=== PATIENT | male | born 1975 | race Caucasian/White ===

== ENCOUNTER 2017-06-13 18:59 | Emergency (ER) | payer SELFPAY ==
[~2017-06-13] VITALS: Ht 175.3 cm; Wt 97.1 kg
[~2017-06-13 18:59] MED LIST: AMOX250; AMOX875 PO; ASPI325; DOXY100 PO; HYDACE5 PO; HYDR1TAB94 PO; IBUP600 PO; IBUP800 PO; LISI20 PO; NAPR500 PO; NAPR550 PO; ONDA4ODT MM; OXYACE5T PO; OXYC1TAB11 PO; PENVK500 PO; Percocet 10-321 EACH PO; Percocet 5-3251 EACH PO; RXHYDMOR2 PO; Rocephin 1g1 G/50 ML IM; SULTRIDS; SULTRIDS PO; TRAM50; TRAM50 PO; Ultram50 MG PO
[2017-06-13] MEDS ORDERED: CEPH500 PO (20:11)
[2017-06-13] MEDS ORDERED: Percocet 5-3251 EACH PO (20:11)
== END 2017-06-13 20:20 | disposition home or self-care (01) ==
LOC: ER 18:59
DX: S71.112A Laceration without foreign body, left thigh, initial encounter (principal); F17.210 Nicotine dependence, cigarettes, uncomplicated; W29.3XXA Contact with powered garden and outdoor hand tools and machinery, initial encounter
CPT/HCPCS: 12004; 36415; 99283

== ENCOUNTER 2018-05-09 17:15 | Emergency (ER) | payer OTHER ==
[~2018-05-09] VITALS: Ht 177.8 cm; Wt 90.3 kg
[~2018-05-09 17:15] MED LIST changes: +ACET500 PO; +ALUM-MAG HYDRO360 ML PO; +ASPI325 PO; +Amoxicillin875 MG PO; +CEPH500 PO; +GABA300 PO; +PERICOLACE PO; +ROXICODONE5 MG PO
[2018-05-09] MEDS ORDERED: Norco 5-325 Ta1 EACH PO (19:01)
== END 2018-05-09 19:12 | disposition home or self-care (01) ==
LOC: ER 17:15
DX: Z76.0 Encounter for issue of repeat prescription (principal); F17.210 Nicotine dependence, cigarettes, uncomplicated; Z79.82 Long term (current) use of aspirin

== ENCOUNTER 2018-10-22 20:20 | Emergency (ER) | payer OTHER ==
[~2018-10-22] VITALS: Ht 172.7 cm; Wt 95.2 kg
[~2018-10-22 20:20] MED LIST changes: +Norco 5-325 Ta1 EACH PO
[2018-10-22 21:05] LABS: BASOPHILS ABSOLUTE AUTO 0.02 K/mm3 (0.00-0.23); BASOPHILS PERCENT AUTO 0 % (0-2); EOSINOPHILS ABSOLUTE AUTO 0.11 K/mm3 (0.00-0.68); EOSINOPHILS PERCENT AUTO 1 % (0-6); Hematocrit 48.8 % (37.0-53.0); Hemoglobin 16.6 g/dL (13.5-17.5); IMMATURE GRAN ABSOLUTE AUTO 0.04 K/mm3 (0.00-0.10); IMMATURE GRAN PERCENT AUTO 0 % (0-1); LYMPHOCYTES ABSOLUTE AUTO 1.81 K/mm3 (0.84-5.20); LYMPHOCYTES PERCENT AUTO 17 % (21-46); MONOCYTES ABSOLUTE AUTO 0.57 K/mm3 (0.16-1.47); MONOCYTES PERCENT AUTO 6 % (4-13); Mean Corpuscular HGB 32.5 pg (26.0-34.0); Mean Corpuscular Volume 96 fL (80-100); Mean Platelet Volume 9.5 fL (9.1-12.4); NEUTROPHILS PERCENT AUTO 76 % (41-73); Platelet Count 285 K/mm3 (150-400); RDW Coefficient Variation 13.7 % (11.7-14.2); RDW Standard Deviation 48.1 fL (35.1-46.3); Red Blood Cell Count 5.11 M/mm3 (4.30-5.90); White Blood Cell Count 10.45 K/mm3 (4.00-11.30)
[2018-10-22 21:23] LABS: Alanine Aminotransfer (ALT/SGP 49 U/L (12-78); Albumin, Blood 4.2 g/dL (3.4-5.0); Alk Phos 104 U/L (50-136); Anion Gap 6 mmol/L (6-16); Aspartate Aminotrans (AST/SGOT 37 U/L (12-37); Bilirubin, Total 0.5 mg/dL (0.1-1.0); Blood Urea Nitrogen 25 mg/dL (8-24); Bun/Creatinine Ratio 21.2 (12.0-20.0); CO2, Blood 27 mmol/L (21-32); Calcium, Blood 9.1 mg/dL (8.5-10.1); Chloride, Blood 106 mmol/L (98-108); Creatinine, Blood 1.18 mg/dL (0.60-1.20); Globulin, Blood 4.1 g/dL (2.2-4.0); Glomerular Filtration Rate >60 (60-); Glucose, Blood 106 mg/dL (70-99); Potassium, Blood 4.6 mmol/L (3.5-5.5); Sodium, Blood 139 mmol/L (136-145); Total Protein, Blood 8.3 g/dL (6.4-8.2)
[2018-10-22] MEDS ORDERED: Percocet 7.5-31 EACH PO (21:52)
[2018-10-22] MEDS ORDERED: IBUP800 PO (21:52)
== END 2018-10-22 22:12 | disposition home or self-care (01) ==
LOC: ER 20:20
PROVIDERS: Emergency Medicine
DX: N20.0 Calculus of kidney (principal); F17.200 Nicotine dependence, unspecified, uncomplicated
CPT/HCPCS: 36415; 80053; 83690; 85025; 99284; A9270

== ENCOUNTER 2019-07-18 17:08 | Emergency (ER) | payer OTHER ==
[~2019-07-18] VITALS: Ht 177.8 cm; Wt 88.5 kg
[~2019-07-18 17:08] MED LIST changes: +Percocet 7.5-31 EACH PO
== END 2019-07-18 17:40 | disposition home or self-care (01) ==
LOC: ER 17:08
DX: T40.2X1A Poisoning by other opioids, accidental (unintentional), initial encounter (principal); F17.210 Nicotine dependence, cigarettes, uncomplicated
CPT/HCPCS: 93005; 93010; 94644; 99284-25

== ENCOUNTER → 2023-01-27 | Outpatient (CLI) | payer OTHER ==
[~2023-01-27] MED LIST changes: +Cipro500 MG PO; +HYDROCODONE-AC1 EA19 PO
== END ==
LOC: LAB 15:56 → LAB SHORT 15:56
DX: R30.0 Dysuria (principal)
CPT/HCPCS: 87086

== ENCOUNTER 2023-01-30 00:36 | Emergency (ER) | payer OTHER ==
[~2023-01-30] VITALS: Ht 172.7 cm; Wt 86.2 kg
[~2023-01-30 00:36] MED LIST changes: -Cipro500 MG PO; -HYDROCODONE-AC1 EA19 PO
[2023-01-30 02:05] LABS: Albumin, Blood 3.7 g/dL (3.4-5.0); Albumin/Globulin Ratio 1.1 (0.8-1.8); Bilirubin, Total 0.3 mg/dL (0.1-1.0); Bun/Creatinine Ratio 21.2 (12.0-20.0); Calcium, Blood 8.5 mg/dL (8.5-10.1); Creatinine, Blood 0.99 mg/dL (0.60-1.20); Globulin, Blood 3.4 g/dL (2.2-4.0); Magnesium, Blood 2.3 mg/dL (1.6-2.4); Potassium, Blood 4.8 mmol/L (3.5-5.5); Total Protein, Blood 7.1 g/dL (6.4-8.2)
[2023-01-30 03:24] LABS: Source, Urine Clean Catch
[2023-01-30 03:27] LABS: Bilirubin, Urine Neg (Neg); Blood, Urine 5+ (Neg); Glucose Qualitative, Urine Neg (Neg); Ketones, Urine Neg (Neg); Leukocyte Esterase, Urine 1+ (Neg); Nitrite, Urine Neg (Neg); Protein, Urine 1+ (Neg); Urobilinogen, Urine NORM (Normal)
[2023-01-30 03:30] VITALS: BP 128/89
[2023-01-30 03:45] LABS: Appearance, Urine Hazy (Clear); Color, Urine Yellow (P-Yellow)
[2023-01-30 03:48] LABS: Red Blood Cells, Urine TNTC /hpf (0-2)
[2023-01-30 03:49] LABS: Amorphous Light (0-Heavy); Bacteria Mod /hpf; Mucus Light (0-Heavy); Squamous Epithelial Cells Rare /hpf (Few)
[2023-01-30] MEDS ORDERED: HYDROCODONE-AC1 EA19 PO (03:58)
[2023-01-30] MEDS ORDERED: Cipro500 MG PO (03:58)
[2023-01-30] MEDS ORDERED: ONDA4ODT MM (03:58)
== END 2023-01-30 04:13 | disposition home or self-care (01) ==
LOC: ER 00:36
PROVIDERS: Emergency Medicine
DX: N13.2 Hydronephrosis with renal and ureteral calculous obstruction (principal); F17.210 Nicotine dependence, cigarettes, uncomplicated; Z87.19 Personal history of other diseases of the digestive system
CPT/HCPCS: 74176; 80053; 81001; 83690; 83735; 87086; 96374; 99285-25; A9270; J1885; J7030

== ENCOUNTER 2023-03-10 12:57 | Emergency (ER) | payer OTHER ==
[~2023-03-10] VITALS: Ht 172.7 cm; Wt 86.2 kg
[~2023-03-10 12:57] MED LIST changes: +Cipro500 MG PO; +HYDROCODONE-AC1 EA19 PO
[2023-03-10 13:02] VITALS: BP 137/108
[2023-03-10 14:40] LABS: BASOPHILS ABSOLUTE AUTO 0.02 K/mm3 (0.00-0.23); BASOPHILS PERCENT AUTO 0 % (0-2); EOSINOPHILS ABSOLUTE AUTO 0.14 K/mm3 (0.00-0.68); EOSINOPHILS PERCENT AUTO 2 % (0-6); Hematocrit 44.1 % (37.0-53.0); Hemoglobin 15.1 g/dL (13.5-17.5); IMMATURE GRAN ABSOLUTE AUTO 0.02 K/mm3 (0.00-0.10); IMMATURE GRAN PERCENT AUTO 0 % (0-1); LYMPHOCYTES ABSOLUTE AUTO 2.54 K/mm3 (0.84-5.20); LYMPHOCYTES PERCENT AUTO 32 % (21-46); MONOCYTES ABSOLUTE AUTO 0.44 K/mm3 (0.16-1.47); MONOCYTES PERCENT AUTO 6 % (4-13); Mean Corpuscular HGB Conc 34.2 g/dL (31.5-36.5); Mean Corpuscular Volume 93 fL (80-100); Mean Platelet Volume 9.9 fL (9.1-12.4); NEUTROPHILS ABSOLUTE AUTO 4.85 K/mm3 (1.96-9.15); NEUTROPHILS PERCENT AUTO 61 % (41-73); Platelet Count 234 K/mm3 (150-400); RDW Coefficient Variation 12.6 % (11.7-14.2); RDW Standard Deviation 43.5 fL (35.1-46.3); Red Blood Cell Count 4.72 M/mm3 (4.30-5.90); White Blood Cell Count 8.01 K/mm3 (4.00-11.30)
[2023-03-10 15:11] LABS: Albumin, Blood 3.8 g/dL (3.4-5.0); Albumin/Globulin Ratio 1.1 (0.8-1.8); Bilirubin, Total 0.3 mg/dL (0.1-1.0); Bun/Creatinine Ratio 23.8 (12.0-20.0); Calcium, Blood 8.7 mg/dL (8.5-10.1); Creatinine, Blood 0.93 mg/dL (0.60-1.20); Globulin, Blood 3.6 g/dL (2.2-4.0); Potassium, Blood 4.1 mmol/L (3.5-5.5); Total Protein, Blood 7.4 g/dL (6.4-8.2)
[2023-03-10] MEDS ORDERED: LIDO700A20 TOP (15:42)
[2023-03-10] MEDS ORDERED: HYDR1TAB94 PO (15:42)
[2023-03-10] MEDS ORDERED: CYCL10 PO (15:42)
[2023-03-10] MEDS ORDERED: IBUP800 PO (15:42)
== END 2023-03-10 15:51 | disposition home or self-care (01) ==
LOC: ER 12:57
PROVIDERS: Physician Assistant
DX: M54.31 Sciatica, right side (principal); F17.210 Nicotine dependence, cigarettes, uncomplicated; Z87.828 Personal history of other (healed) physical injury and trauma
CPT/HCPCS: 73502; 80053; 83690; 85025; 99283-25

== ENCOUNTER 2023-04-26 15:32 | Emergency (ER) | payer OTHER ==
[~2023-04-26] VITALS: Ht 172.7 cm; Wt 86.2 kg
[~2023-04-26 15:32] MED LIST changes: +CYCL10 PO; +LIDO700A20 TOP
[2023-04-26] MEDS ORDERED: Acetaminophen 325 MG TABLET PO ONE (17:40)
[2023-04-26] MEDS ORDERED: Ketorolac Tromethamine 30mg Vial IM ONE (17:40)
[2023-04-26] MEDS ORDERED: OxyCODONE 5 mg/Acetamin 325 mg TABLET PO ONE (17:40)
[2023-04-26] MEDS ORDERED: Cyclobenzaprine HCl 10 MG Tab PO ONE (17:40)
[2023-04-26] MEDS ORDERED: TAMS.4ER PO (17:47)
[2023-04-26 17:55] VITALS: BP 139/88
== END 2023-04-26 17:59 | disposition home or self-care (01) ==
LOC: ER 15:32
DX: M54.41 Lumbago with sciatica, right side (principal); F17.210 Nicotine dependence, cigarettes, uncomplicated
CPT/HCPCS: 96372; 99283-25; A9270; J1885

== ENCOUNTER 2023-08-22 15:43 | Emergency (ER) | payer OTHER ==
[~2023-08-22] VITALS: Ht 172.7 cm; Wt 90.7 kg
[~2023-08-22 15:43] MED LIST changes: +TAMS.4ER PO
[2023-08-22 15:49] VITALS: BP 148/95
[2023-08-22] MEDS ORDERED: FentaNYL Citrate 50 MCG/ML 2 ML Injection IV ONE (15:55)
[2023-08-22 16:38] LABS: BASOPHILS ABSOLUTE AUTO 0.02 K/mm3 (0.00-0.23); BASOPHILS PERCENT AUTO 0 % (0-2); EOSINOPHILS ABSOLUTE AUTO 0.09 K/mm3 (0.00-0.68); EOSINOPHILS PERCENT AUTO 1 % (0-6); Hemoglobin 14.4 g/dL (13.5-17.5); IMMATURE GRAN ABSOLUTE AUTO 0.01 K/mm3 (0.00-0.10); IMMATURE GRAN PERCENT AUTO 0 % (0-1); LYMPHOCYTES ABSOLUTE AUTO 1.45 K/mm3 (0.84-5.20); LYMPHOCYTES PERCENT AUTO 22 % (21-46); MONOCYTES ABSOLUTE AUTO 0.35 K/mm3 (0.16-1.47); MONOCYTES PERCENT AUTO 5 % (4-13); Mean Corpuscular HGB 33.1 pg (26.0-34.0); Mean Corpuscular HGB Conc 35.1 g/dL (31.5-36.5); Mean Corpuscular Volume 94 fL (80-100); NEUTROPHILS ABSOLUTE AUTO 4.54 K/mm3 (1.96-9.15); NEUTROPHILS PERCENT AUTO 70 % (41-73); Platelet Count 222 K/mm3 (150-400); RDW Coefficient Variation 12.8 % (11.7-14.2); RDW Standard Deviation 44.5 fL (35.1-46.3); Red Blood Cell Count 4.35 M/mm3 (4.30-5.90); White Blood Cell Count 6.46 K/mm3 (4.00-11.30)
[2023-08-22] MEDS ORDERED: LORazepam 2 MG/ML 1ML Injection IV PRN (16:55)
[2023-08-22 17:17] LABS: Albumin, Blood 3.9 g/dL (3.4-5.0); Albumin/Globulin Ratio 1.1 (0.8-1.8); Bilirubin, Total 0.7 mg/dL (0.1-1.0); Bun/Creatinine Ratio 21.7 (12.0-20.0); Calcium, Blood 8.6 mg/dL (8.5-10.1); Creatinine, Blood 1.06 mg/dL (0.60-1.20); Globulin, Blood 3.4 g/dL (2.2-4.0); Potassium, Blood 4.6 mmol/L (3.5-5.5); Total Protein, Blood 7.3 g/dL (6.4-8.2)
[2023-08-22] MEDS ORDERED: CeFAZolin Sodium 2,000 MG in NS 100 ML IV ONE (17:25)
[2023-08-22] MEDS ORDERED: CEFD300 PO (18:49)
[2023-08-22] MEDS ORDERED: OXAYDO5 M1 PO (18:49)
[2023-08-23] MEDS ORDERED: Ibuprofen600 MG PO (04:21)
== END 2023-08-22 18:59 | disposition home or self-care (01) ==
LOC: ER 15:43
PROVIDERS: Physician Assistant
DX: S81.012A Laceration without foreign body, left knee, initial encounter (principal); W29.3XXA Contact with powered garden and outdoor hand tools and machinery, initial encounter; F41.9 Anxiety disorder, unspecified; F17.210 Nicotine dependence, cigarettes, uncomplicated
CPT/HCPCS: 11010; 12004; 73560-LT; 80053; 85025; 96365-59; 96375-59; 99284-25; J0690; J2060; J3010